=== PATIENT | female | born 1975 | race Caucasian/White ===

== ENCOUNTER 2018-11-18 17:36 | Emergency (ER) | payer OTHER ==
[2018-11-18 18:35] VITALS: BP 120/80
[2018-11-18] MEDS ORDERED: Ibuprofen ADULT LIQ* 600 MG/30 ML UDC PO ONE (18:51)
[2018-11-18] MEDS ORDERED: Tetan/Diph/Pertus SYR(Tdap)* 0.5 ML SYR(BOOSTRIX) use SYR IM ONE (18:51)
--- NOTE | 2018-11-18 18:51 | UC ---
General HPI - HPI Summary HPI Summary: LAST PM, THE WIND CAUGHT HER CAR DOOR AND SLAMMED ON HER L FOREARM. C/O PAIN AND SWELLING. ALSO NOTES A CUT THAT SHE RINSED WITH WATER AND THEN APPLIED AN ANTIBIOTIC. - History of Current Complaint Chief Complaint: UCUpperExtremity Stated Complaint: LEFT ARM INJURY Time Seen by Provider: 11/18/18 18:41 Hx Obtained From: Patient Hx Last Menstrual Period: 11/12/18 Onset/Duration: Sudden Onset Timing: Constant Pain Intensity: 3 Associated Signs & Symptoms: Negative: Fever - Allergy/Home Medications Allergies/Adverse Reactions: Allergies Allergy/AdvReac Type Severity Reaction Status Date / Time Penicillins Allergy Anaphylatic Verified 11/18/18 18:29 Shock sulfamethoxazole Allergy Rash Verified 11/18/18 18:29 [From Bactrim] trimethoprim [From Bactrim] Allergy Rash Verified 11/18/18 18:29 Home Medications: Home Medications Iron 90 mg PO DAILY 11/18/18 [History Confirmed 11/18/18] Multivitamin [Multivitamins] 1 cap PO DAILY 11/18/18 [History Confirmed 11/18/18 ] Selenomethionine [Selenium] 200 mcg PO DAILY 11/18/18 [History Confirmed ] PMH/Surg Hx/FS Hx/Imm Hx Endocrine History: Thyroid Disease Psychological History: Anxiety - Surgical History Surgical History: Yes Surgery Procedure, Year, and Place: hernia, collapsed lung - Family History Known Family History: Positive: Hypertension - Social History Occupation: Employed Full-time Lives: With Family Alcohol Use: Daily Alcohol Amount: 3-4 beers daily Substance Use Type: Marijuana Substance Use Comment - Amount & Last Used: daily Smoking Status (MU): Light Every Day Tobacco Smoker Type: Cigarettes Amount Used/How Often: 5 cigarettes daily Have You Smoked in the Last Year: No When Did the Patient Quit Smoking/Using Tobacco: 2011 - Immunization History Most Recent Tetanus Shot: unknown Hx Tetanus, Diphtheria Vaccination: No - UNKNOWN Review of Systems All Other Systems Reviewed And Are Negative: Yes Musculoskeletal: Positive: Other: - PAIN, SWELLING AND A CUT L FOREARM Physical Exam Triage Information Reviewed: Yes Appearance: Well-Appearing Vital Signs: Initial Vital Signs Temp 98.8 F 11/18/18 18:31 Pulse 83 11/18/18 18:31 Resp 16 11/18/18 18:31 BP 120/80 11/18/18 18:31 Pulse Ox 99 11/18/18 18:31 Vital Signs Reviewed: Yes Eyes: Positive: Conjunctiva Clear ENT: Positive: Normal ENT inspection Respiratory: Positive: Lungs clear Cardiovascular: Positive: RRR Abdomen Description: Positive: Nontender Musculoskeletal: Positive: Other: - LUE: DORSAL-PROXIMAL FOREARM HAS MILD SWELLING, TENDERNESS AND A 1/2CM CUT THAT HAS CLOSED IN THE CENTER OF THE AFFECTED AREA. THE CUT DOES NOT OPEN WITH TRACTION. NO ERYTHEMA, WARMTH, DISCHARGE OR STREAKING. THE AREAS ABOVE AND BELOW ARE UNREMARKABLE. THE ARM HAS FULL S/V/M FUNCTION. Neurological: Positive: Alert Psychological: Positive: Normal Response To Family, Age Appropriate Behavior Skin Exam: Normal Diagnostics - Radiology No standard instances Radiology Interpretation Completed By: ED Physician - no fx Course/Dx - Differential Dx - Multi-Symptom Differential Diagnoses: Other - NO INDICATION FOR CLOSURE OF THE LACERATION. NURSING CLEANED THE WOUND. - Diagnoses Provider Diagnosis: Contusion of left forearm, Laceration Discharge - Sign-Out/Discharge Documenting (check all that apply): Patient Departure All imaging exams completed and their final reports reviewed: No - Discharge Plan Condition: Stable Disposition: HOME Patient Education Materials: Contusion in Adults (ED), Acute Wounds (ED) Referrals: Elizabet Mora MD [Primary Care Provider] - If Needed Additional Instructions: FOLLOW UP WITH PRIMARY CARE IF NOT BETTER WITHIN 1 WEEK OR SOONER FOR ANY WORSENING. - Billing Disposition and Condition Condition: STABLE Disposition: Home
--- NOTE | 2018-11-19 08:47 | UC ---
- Progress Note Progress Note: final read reviewed and neg. Course/Dx - Diagnoses Provider Diagnoses: Contusion of left forearm, Laceration Discharge - Sign-Out/Discharge Documenting (check all that apply): Patient Departure All imaging exams completed and their final reports reviewed: Yes - Discharge Plan Condition: Stable Disposition: HOME Patient Education Materials: Contusion in Adults (ED), Acute Wounds (ED) Referrals: Elizabet Mora MD [Primary Care Provider] - If Needed Additional Instructions: FOLLOW UP WITH PRIMARY CARE IF NOT BETTER WITHIN 1 WEEK OR SOONER FOR ANY WORSENING. - Billing Disposition and Condition Condition: STABLE Disposition: Home
== END 2018-11-18 19:29 | disposition home or self-care (01) ==
LOC: UCCORT 17:36
DX: S50.12XA Contusion of left forearm, initial encounter (principal); S51.812A Laceration without foreign body of left forearm, initial encounter; F17.210 Nicotine dependence, cigarettes, uncomplicated; Z88.2 Allergy status to sulfonamides; Z88.0 Allergy status to penicillin; W22.8XXA Striking against or struck by other objects, initial encounter; Y92.9 Unspecified place or not applicable
CPT/HCPCS: 90471; 90715; 99212; A9270-GY; G0463